=== PATIENT | male | born 1940 | race Caucasian/White ===

== ENCOUNTER 2017-06-25 11:16 | Inpatient (IN) | payer MEDICARE, OTHER ==
[~2017-06-25] VITALS: Ht 179.1 cm; Wt 84.1 kg
--- NOTE | ~2017-06-25 | EC ---
PATIENT:SYLWIA LAUGHLIN DATE OF SERVICE: 06/25/17 SEX: M MEDICAL RECORD: [id number] DATE OF : 38 LOCATION:D.[facility] AGE OF PATIENT: 77 ADMISSION DATE: 06/25/17 REFERRING PHYSICIAN: INTERPRETING PHYSICIAN: MIRANDA TELLEZ MD ECHOCARDIOGRAM REPORT ECHO CHARGES 4 ECHO COMPLETE CLINICAL DIAGNOSIS: CVA ECHOCARDIOGRAPHIC MEASUREMENTS (adult normal given) AC root (d.<3.7cm) 3.3 cm LV Septum d (<1.2 cm> 1.4 cm Valve Excursion 1.8 cm LV Septum (systole) 2.0 cm Left Atria (s.<4.0cm> 3.5 cm LVPW d(<1.2cm) 1.3 cm RV (d.<2.3cm) 2.7 cm LVPW (sytole) 1.7 cm LV diastole(<5.6CM) 5.2 cm MV E-F(>70mm/sec) cm LV systole 3.0 cm LVOT Diameter 1.7 cm MV exc.(>10mm) cm Est.ejection fraction (50-75%) % Pericardial Effusion N DOPPLER: LVIT cm/sec A 88.0 cm/sec E 69.0 cm/sec LA cm/sec RVSP 33.2 mmHg LVOT 122 cm/sec AOP1/2T m/s Asc. Ao 181 cm/sec RVOT 66.0 cm/sec RA cm/sec PA 95.0 cm/sec AV Gradient Peak 13.1 mmHg AV Mean 5.7 mmHg AV Area 1.4 cm MV Gradient Peak 4.4 mmHg MV Mean 1.3 mmHg MV Area cm COMMENTS: Food Manager: Cary HUGHESOE Physician'S Aide: 4 Dr. Tellez TAPE# PACS DATE OF SERVICE: 06/26/2017 Transthoracic Echocardiogram FINDINGS: 1. The left ventricle has normal size and normal function with mild left ventricular hypertrophy that is concentric in nature. 2. The mitral valve is shown to have mild mitral regurgitation; is grossly normal, although well not visualized. 3. Aortic valve difficult to visualize but by Doppler evaluation appears to be ECHOCARDIOGRAM REPORT [id number] SYLWIA LAUGHLIN normal function and a grossly normal structure. 4. The right ventricle has normal size and normal function. 5. The right atrium has normal size and normal function. 6. The tricuspid valve has moderate tricuspid regurgitation and the pulmonary pressures are at the upper limits of normal to mildly elevated between 25 and 35 mmHg. 7. The pulmonic valve is not well visualized, but otherwise normal. 8. The pericardium shows no evidence of pericardial effusion. 9. The IVC is seen to be normal and collapses, indicating likely normal CVP. TRANSINT:[id number] Voice Confirmation ID: [id number] DOCUMENT ID: [id number] MIRANDA TELLEZ MD CC: [id number] DICTATION DATE: 06/27/172024 MANAGER CONTINUOUS IMPROVEMENT: 06/27/172323 DIS IN 06/26/17 [facility] [address] [id number]
[~2017-06-25 11:16] MED LIST: BAYER CHEWABLE81 MG PO; CENTRUM COMPLE1 EACH PO; COZAAR25 MG PO; GARLIC1 CAP PO; OMEGA 3 FISH OI1 CAP PO; PLAVIX75 MG PO; PROSCAR5 MG PO
[2017-06-25 12:10] LABS: BASOPHILS 0.4 % (0-2); EOSINOPHILS 2.7 % (0-7); HEMATOCRIT 44.4 % (42.0-54.0); HEMOGLOBIN 15.8 g/dL (13.5-17.5); IMMATURE GRANULOCYTES 0.2 % (0-5); LYMPHOCYTES 28.3 % (15-50); MCH 32.2 pg (26.0-34.0); MCHC 35.6 g/dL (31.0-37.0); MCV 90.4 fL (80.0-100.0); MEAN PLATELET VOLUME 9.7 fL (7.4-10.4); MONOCYTES 11.2 % (2-11); NEUTROPHILS 57.2 % (40-80); PLATELET COUNT 160 10x3/uL (130-400); RBC 4.91 10x6/uL (4.20-6.10); RDW 12.8 % (11.5-14.5); WBC 4.5 10x3/uL (4.8-10.8)
[2017-06-25 12:27] LABS: ALKALINE PHOSPHATASE 75 U/L (46-116); ALT (SGPT) 22 U/L (10-68); BILIRUBIN - TOTAL 0.54 mg/dL (0.2-1.3); CALC OSMOLALITY 279 mosm/kg (275-300); CALCIUM 8.5 mg/dL (8.5-10.1); CARBON DIOXIDE 26.7 mmol/L (21.0-32.0); CHLORIDE - SERUM 105 mmol/L (98-107); GLUCOSE 102 mg/dL (74-106); POTASSIUM - SERUM 4.4 mmol/L (3.5-5.1); PROTEIN - SERUM 6.6 g/dL (6.4-8.2); SODIUM 140 mmol/L (136-145); UREA NITROGEN 15 mg/dL (7-18); eGFR NON AFRICAN AMERICAN 77 mL/min (90-120)
[2017-06-25 12:35] LABS: PRO BNP 82 pg/mL (0-450)
[2017-06-25 12:43] LABS: TROPONIN-I < 0.017 ng/mL (0.000-0.060)
[2017-06-25] MEDS ORDERED: ASPIRIN EC325 M1 PO (16:11)
[2017-06-25 16:53] VITALS: BP 113/67
[2017-06-25 18:20] VITALS: BP 113/67; Ht 179.1 cm; Wt 84.1 kg
[2017-06-25 20:00] VITALS: BP 137/72
[2017-06-26] VITALS: BP 138/63
[2017-06-26 04:00] VITALS: BP 119/63
[2017-06-26 05:42] LABS: BASOPHILS 0.5 % (0-2); EOSINOPHILS 4.8 % (0-7); HEMATOCRIT 42.4 % (42.0-54.0); HEMOGLOBIN 14.7 g/dL (13.5-17.5); IMMATURE GRANULOCYTES 0.2 % (0-5); MCH 31.6 pg (26.0-34.0); MCHC 34.7 g/dL (31.0-37.0); MCV 91.2 fL (80.0-100.0); MEAN PLATELET VOLUME 10.2 fL (7.4-10.4); MONOCYTES 10.9 % (2-11); NEUTROPHILS 44.6 % (40-80); PLATELET COUNT 153 10x3/uL (130-400); RBC 4.65 10x6/uL (4.20-6.10); RDW 12.9 % (11.5-14.5); WBC 4.4 10x3/uL (4.8-10.8)
[2017-06-26 05:55] LABS: ALBUMIN 3.2 g/dL (3.4-5.0); ALKALINE PHOSPHATASE 59 U/L (46-116); ALT (SGPT) 19 U/L (10-68); BILIRUBIN - TOTAL 0.46 mg/dL (0.2-1.3); CALC OSMOLALITY 279 mosm/kg (275-300); CALCIUM 7.9 mg/dL (8.5-10.1); CARBON DIOXIDE 28.3 mmol/L (21.0-32.0); CHLORIDE - SERUM 107 mmol/L (98-107); CHOL - HDL RATIO 4.6 ratio (2.3-4.9); CHOLESTEROL, TOTAL 206 mg/dL (0-200); GLUCOSE 98 mg/dL (74-106); HDL CHOLESTEROL 45 mg/dL (32-96); LDL CHOLESTEROL 138 mg/dL (0-100); LDL-HDL RATIO 3.1 ratio (1.5-3.5); POTASSIUM - SERUM 4.3 mmol/L (3.5-5.1); SODIUM 140 mmol/L (136-145); TRIGLYCERIDE 115 mg/dL (30-200); UREA NITROGEN 14 mg/dL (7-18); eGFR NON AFRICAN AMERICAN 77 mL/min (90-120)
[2017-06-26] MEDS ORDERED: PLAVIX75 MG PO (08:06)
[2017-06-26 09:00] VITALS: BP 98/74
== END 2017-06-26 10:45 | disposition home or self-care (01) | DRG 66 ==
LOC: D.ER 11:16 → D.MS 14:06
PROVIDERS: Emergency Medicine; ADMIT Family Medicine
DX: I63.9 Cerebral infarction, unspecified (principal); R20.0 Anesthesia of skin; I10 Essential (primary) hypertension; E11.65 Type 2 diabetes mellitus with hyperglycemia; Z95.5 Presence of coronary angioplasty implant and graft

== ENCOUNTER 2018-06-09 01:35 | Inpatient (IN) | payer MEDICARE, OTHER ==
[2018-06-09] VITALS (9 sets, daily range): BP systolic 122–162; BP diastolic 62–83; BMI 25.1
[~2018-06-09] VITALS: Ht 179.1 cm; Wt 87.5 kg
--- NOTE | ~2018-06-09 | TEE ---
PATIENT:SYLWIA LAUGHLIN MEDICAL RECORD: [id number] LOCATION:[place] [address] AGE OF PATIENT: 78 ADMISSION DATE: 06/10/18 SEX: M REFERRING PHYSICIAN: INTERPRETING PHYSICIAN: DELMAR GREENBERG MD TRANSESOPHAGEAL ECHOCARDIOGRAM Date: 06/13/18 ISA CHARGE Y INDICATIONS: CABG PREMEDICATIONS: PATIENT'S RESPONSE PROCEDURE DOPPLER MEASUREMENTS: LVIT LA PA RA LVOT RVOT Asc. Ao AV Gradient Peak AV Mean AV Area MV Gradient Peak MV Mean MV Area INTERPRETATION: LVd: 3.6 cm LVs: 1.8 cm Doppler: 2-D: COLOR FLOW DOPPLER NORMAL SALINE STUDY: MISCELLANOUS: DIAGNOSIS: PLAN: Welding Inspector:Norma Mcintosh Palletiser Operator: Cary TORRE COMMENTS: DATE OF SERVICE: 06/13/2018 PROCEDURE: Transesophageal echo evaluation of valvular structures during bypass surgery. FINDINGS: 1. Left ventricular chamber size is within normal limits. Left ventricular systolic function is normal. Overall ejection fraction is estimated at 55%. 2. Left atrium, right atrium, and right ventricle chamber sizes are upper TRANSESOPHAGEAL ECHOCARDIOGRAM REPORT [id number] SYLWIA LAUGHLIN limits of normal. 3. Valvular structures have normal structure and motion. 4. Doppler interrogation reveals mild aortic insufficiency and mild mitral regurgitation. No other valvular insufficiency or stenosis. 5. No evidence of pericardial effusion or left ventricular thrombus. TRANSINT:[id number] Voice Confirmation ID: [id number] DOCUMENT ID: [id number] at 1806 CC: [id number] DICTATION DATE: 06/13/18 1502 UX DEVELOPER DESIGNER: 06/13/18 1925 ADM IN [place] [id number] [place] [address]
--- NOTE | ~2018-06-09 | OP ---
PATIENT NAME: SYLWIA LAUGHLIN MEDICAL RECORD: [id number] :38 LOCATION:D.[facility] D.CV04 ADMISSION DATE:06/10/18 SURGEON: RYAN DENNEY MD DATE OF OPERATION: 06/13/2018 SURGEON: Ryan Denney MD ANESTHESIA: General endotracheal, Dr. Carrero. OPERATION PERFORMED: 1. Coronary artery bypass. 2. Left internal thoracic, left anterior descending. 3. Reverse saphenous vein graft to the distal right coronary artery. 4. Reverse saphenous vein graft to the ramus, sequential obtuse marginal 2 coronary artery. PREOPERATIVE DIAGNOSES: Intermediate coronary syndrome, unstable angina. POSTOPERATIVE DIAGNOSES: Intermediate coronary syndrome, unstable angina. INDICATION FOR OPERATION: Unstable angina. FINDINGS OF THE OPERATION: The left internal thoracic and reverse saphenous vein graft were excellent conduits for grafting. The target vessels were also of good quality and caliber. ESTIMATED BLOOD LOSS: Cell Saver was used. DESCRIPTION OF PROCEDURE: After informed consent, adequate preoperative medication evaluation, the patient was brought to the operating room, placed on the table in the supine position. After induction of general endotracheal anesthesia, application of appropriate monitoring devices, chest, neck, abdomen, and both legs were prepped and draped in a sterile field, utilizing Betadine scrub, alcohol, and Betadine solution. Betadine-impregnated drape was also used. Saphenous vein was harvested from right thigh and prepared for reverse saphenous vein grafting. Leg was closed over drains utilizing 3-0 Vicryl and skin alphonso. A median sternotomy incision was used and dissection carried down the fascia. Hemostasis maintained with electrocautery. Sternum was divided, the innominate vein was identified and protected. Left internal thoracic was taken down and prepared for grafting. The patient was given a calculated dose of heparin, cannulated in a standard fashion utilizing 1 aortic, one two-stage cannula in the atrium and inferior vena cava. The patient placed on cardiopulmonary bypass, cooled to 32 degrees centigrade. A cross clamp was placed just proximal to the aortic cannula. The patient was given cardioplegic solution through the aortic root. The patient was given a cold induction and cold maintenance. The patient was given cold intermittent cardioplegic solution throughout the procedure through the grafts, through the root or a combination of both. The first vessel to be grafted was the second obtuse marginal was grafted end-to-side utilizing a running 7-0 Prolene suture. The graft was then measured to the ramus and a djxo-on-yfcw anastomosis fashioned utilizing running 7-0 Prolene suture. Graft was measured back to the aorta and a proximal anastomosis fashioned utilizing running 6-0 Prolene suture. Next, the distal right was grafted end-to-side utilizing running 7-0 Prolene suture. Graft was measured back to the aorta, proximal anastomosis fashioned utilizing running 6-0 Prolene suture. Next, left internal thoracic was brought through a hole in OPERATIVE REPORT [id number] TRUMAN,SYLWIA Barth pericardium, sutured to the left anterior descending end-to-side utilizing a running 8-0 Prolene suture. Pedicle was attached to the epicardium with 6-0 Prolene suture. All maneuvers to remove trapped air were performed. The patient was given warm cardioplegic reperfusion and controlled reperfusion. The patient rewarmed to 37 degrees centigrade. Two atrial and 2 ventricular pacing wires were placed on the heart, brought out through the epigastric area. The patient was weaned from cardiopulmonary bypass. After being stable off bypass, he was given calculated dose of protamine to reverse the heparin. Hemostasis was achieved. A #40 right angle and #36 chest tubes were brought in through the epigastric area and placed in mediastinum. Chest was again irrigated. Instrument count and sponge count were correct times 2. Chest was closed in layers utilizing #7 wire on the sternum, #2 Vicryl on linea alba and pectoralis fascia. Subcutaneous tissue was approximated with 3-0 Vicryl and skin approximated with 3-0 subcuticular Vicryl. Sterile dressings were applied. The patient tolerated the procedure well and was transferred to cardiovascular recovery in stable condition. TRANSINT:[id number] Voice Confirmation ID: [id number] DOCUMENT ID: [id number] RYAN DENNEY MD at 1234 CC: [id number] DICTATION DATE: 06/13/18 142 INSPECTOR REPAIRER: 06/13/18 1439 DIS IN 06/21/18 [facility] [address] [id number]
--- NOTE | ~2018-06-09 | HEMODYNAMI ---
PATIENT:SYLWIA LAUGHLIN MEDICAL RECORD: [id number] : 38 LOCATION:[facility] [address] [facility]# [id number] ADMISSION DATE: 06/09/18 Generatedon:06/09/201810:58 Patient name: SYLWIA LAUGHLIN Patient #: [id number] SSN: : 1940 Date of study: 06/09/2018 Page: Of Hemodynamic Procedure Report Patient Data Patient Demographics Procedure consent was obtained First Name: SYLWIA Gender: Male Last Name: TRUMAN : 1940 Middle Initial: H Age: 78 year(s) Patient #: [id number] Race: Additional ID: [id number] Contact details [address]: [address] [place] [address] DRIVE State: [place] City: [place] Zip code: [address] Past Medical History History of disease Date Diagnosis Comments CAD Peripheral vascular disease Allergies Allergen Reaction Date Comments Reported ANA inhibitors 10/21/2015 Statins 10/21/2015 Admission Admission Data Admission Date: 06/09/2018 Admission Time: 2:49 Room #: D.2127 Lab Results Lab Result Date: 06/09/2018 Lab Result Time: 0:00 Biochemistry Name Units Result Min Max BUN mg/dl 15 --(--*-)-- 7 18 Creatinine mg/dl 1.1 --(--*-)-- 0.6 1.3 CBC Name Units Result Min Max Hemoglobin g/dl 15.4 --(-*--)-- 13.5 17.5 Procedure Procedure Types Cath Procedure Diagnostic Procedure LHC LH w/Coronaries Sedation Charges Moderate Sedation up to 15 minutes Procedure Description Procedure Date Procedure Date: 06/09/2018 Procedure Start Time: 10:26 Procedure End Time: 10:56 Procedure Staff Name Function Chester Mcintosh MD Performing Physician Adair Rosa RT Monitor Pat Camacho RT Scrub Tito Tim RN Nurse Albert Amanda RN Nurse Procedure Data Cath Procedure Fluoroscopy Diagnostic fluoroscopy Total fluoroscopy Time: 3.2 time: 3.2 min min Diagnostic fluoroscopy Total fluoroscopy dose: 789 dose: 789 mGy mGy Contrast Material Contrast Material Type Amount (ml) Isovue 300 85 Entry Location Entry Primary Successful Side Size Upsize Upsize Entry Closure Ye ccessful Closure Location (Fr) 1 (Fr) 2 (Fr) Remarks Device Remarks Radial Right 6 Fr Mechanical artery Short Compression Estimated blood loss: 5 ml Diagnostic catheters Device Type Used For End Catheter Placement DIAGNOSTIC Tim 110cm Procedure 5Fr catheter ([id number]) DIAGNOSTIC [place] 110cm 5 Procedure Fr catheter ([id number]) Procedure Complications No complications Procedure Medications Medication Administration Route Dosage 0.9% NaCl I.V. 100 ml/hr Oxygen etCO2 Nasal cannula 2 l/min Heparin Flush Bag added to field 2 bags (1000units/500ml NS) Lidocaine 2% added to field 20 Radial Cocktail added to field 1 syringe (Verapomil 2mg/Nitro 400mcg/Heparin 1500units) Radial Cocktail I.A. 1 syringe (Verapomil 2mg/Nitro 400mcg/Heparin 1500units) Versed I.V. 2 mg Fentanyl I.V. 100 mcg Hemodynamics Rest HGB: 15.4 (g/dl) Heart Rate: 62 (bpm) Pressure Samples Time Site Value (mmHg) Purpose Heart Use Rate(bpm) 10:29 LV 104/0,8 Snapshot 71 10:30 AO 86/49(60) Pullback 76 10:30 LV 105/19,26 Pullback 76 Gradients Valve Time Site 1 Site 2 Mean SEP/DFP Peak To Heart Use (mmHg) (sec/min) Peak Rate (mmHg) (bpm) Aortic 10:30 LV AO 11 21 19 76 105/19,26 86/49(60) Calculations Valve P-P Mean Valve Index Valve Source Name Gradient Area Flow (cm2) Aortic 19 11 19 11 Snapshots Pre Cath Intra NCS Post Cath Vital Signs Time Heart Resp SPO2 etCO2 NIBP (mmHg) Rhythm Pain Sedation Rate (ipm) (%) (mmHg) Status Level (bpm) 10:14:28 64 15 99 0 166/90(128) NSR 0 (11) 10(A) , No pain 10:19:45 62 20 100 33.9 149/79(128) NSR 0 (11) 10(A) , No pain 10:24:26 64 20 100 35.4 140/79(115) NSR 0 (11) 10(A) , No pain 10:29:04 75 10 97 24.1 95/51(65) NSR 0 (11) 10(A) , No pain 10:33:30 76 18 94 0 107/83(95) NSR 0 (11) 10(A) , No pain 10:38:38 76 14 93 27.1 144/71(101) NSR 0 (11) 9(A) , No pain 10:43:16 73 19 94 38.5 133/70(96) NSR 0 (11) 9(A) , No pain 10:47:53 72 14 94 35.4 128/69(91) NSR 0 (11) 9(A) , No pain 10:52:31 71 11 94 37.7 124/72(91) NSR 0 (11) 9(A) , No pain Medications Time Medication Route Dose Verified Delivered Reason Notes Effectiveness by by 10:23:46 0.9% NaCl I.V. 100 Tito Francis Per ml/hr Glenroy Tim RN physician RN 10:23:57 Oxygen etCO2 2 l/min Tito Francis Per Nasal Glenroy Tim RN physician cannula RN 10:24:16 Heparin Flush added 2 bags Tito Francis used for Bag to Glenroy Tim RN procedure (1000units/500ml field RN NS) 10:24:28 Lidocaine 2% added 20ml Tito Francis for local to vial Glenroy Tim RN anesthetic field RN 10:24:39 Radial Cocktail added 1 Tito Tito used for (Verapomil to syringe Glenroy Tim RN procedure 2mg/Nitro field RN 400mcg/Heparin 1500units) 10:25:39 Versed I.V. 2 mg Albert Albert for sedation Treasure Amanda RN RN 10:25:48 Fentanyl I.V. 100 mcg Albert Albert for sedation Treasure Amanda RN RN 10:28:10 Radial Cocktail I.A. 1 Tito Chester for (Verapomil syringe Glenroy Mcintosh MD vasodilation 2mg/Nitro RN 400mcg/Heparin 1500units) Procedure Log Time Note 10:00:42 Tito Tim RN sent for patient. Start room use. 10:09:54 Time tracking: Regular hours (M-F 7:00 - 5:00) 10:10:00 Plan of Care:Hemodynamics will remain stable., Cardiac rhythm will remain stable., Comfort level will be maintained., Respiratory function will remain adequate., Patient/ family verbilizes understanding of procedure., Procedure tolerated without complication., Recovers from procedure without complications.. 10:10:16 Patient received from Med II to CCL 1 Alert and oriented. Tansferred to table in Supine position. 10:10:17 Warm blankets applied, and mariah hugger turned on for patient comfort. 10:10:19 Signed procedure consent form obtained from patient. 10:10:30 ECG and BP/O2 sat monitors applied to patient. 10:10:30 Vital chart was started 10:10:31 Baseline sample Acquired. 10:14:57 Baseline sample Acquired. 10:15:02 Rhythm: sinus rhythm 10:15:03 Full Disclosure recording started 10:15:07 H&P Date Dictated: 06/09/2018 New H&P dictated by physician.. 10:15:09 Pre-procedure instructions explained to patient. 10:15:09 Pre-op teaching completed and patient verbalized understanding. 10:15:12 Family in patients room. 10:15:15 Patient NPO since Midnight. 10:17:25 Is the patient allergic to Iodine/contrast media? No. 10:17:27 Was the patient premedicated? No 10:17:27 Is patient on blood thinner?Yes 10:17:30 ACC The patient was administered the following blood thiners within the last 24 hours: ACCPlavix 10:17:33 Patient diabetic? No. 10:17:35 Previous problem with sedation/anesthesia? No ? 10:17:41 Snore? No 10:17:42 Sleep apnea? No 10:17:43 Deviated septum? No 10:17:44 Opens mouth fully? Yes 10:17:44 Sticks out tongue? Yes 10:17:46 Airway obstruction? No ? 10:17:51 Dentures? Yes in tight 10:17:58 Pre procedure: right dorsailis pedis pulse 2+ Normal; easily identifiable; not easily obliterated 10:18:00 Patient pain scale 0/10 ?. 10:18:07 IV patent on arrival in left forearm with 0.9% NaCl at O. 10:18:09 Lab results completed and on chart. 10:18:13 Right Radial & Right Groin area was prepped with chlora-prep and draped in sterile fashion 10:18:14 Physician arrived 10:18:15 --------ALL STOP TIME OUT------ 10:18:15 Final Timeout: patient, procedure, and site verified with staff and physician. All members of the team are in agreement. 10:18:16 Right Radial & Right Groin site verified by team. 10:18:20 Physical assessment completed. ASA score P 2 - A patient with mild systemic disease as per Chester Mcintosh MD. 10:18:23 Sedation plan: IV Moderate Sedation Medication:Versed, Fentanyl 10:19:45 Lab Result : BUN 15 mg/dl 10:19:45 Lab Result : Creatinine 1.1 mg/dl 10:19:45 Lab Result : Hemoglobin 15.4 g/dl 10:21:51 Use device set Radial Dx or PCI 10:21:53 ACIST Syringe (05951) opened to sterile field. 10:21:54 ACIST Hand Control (58629) opened to sterile field. 10:21:55 ACIST Manifold (29408) opened to sterile field. 10:21:56 Bag Decanter (2002S) opened to sterile field. 10:21:58 Tegaderm 4 x 4 (1626W) opened to sterile field. 10:21:58 Medline Cath Pack ([id number]) opened to sterile field. 10:21:59 DIAGNOSTIC WIRE .035 260cm J wire (964060) opened to sterile field. 10:22:00 MBrace Wrist Support ([id number]) opened to sterile field. 10:22:01 SHEATH 6Fr Prelude Radial ([id number]) opened to sterile field. 10:23:46 0.9% NaCl 100 ml/hr I.V. was administered by Tito Tim RN; Per physician; 10:23:50 Zero performed for pressure channel P1 10:23:57 Oxygen 2 l/min etCO2 Nasal cannula was administered by Tito Tim RN; Per physician; 10:24:16 Heparin Flush Bag (1000units/500ml NS) 2 bags added to field was administered by Tito Tim RN; used for procedure; 10:24:28 Lidocaine 2% 20ml vial added to field was administered by Tito Tim RN; for local anesthetic; 10::39 Radial Cocktail (Verapomil 2mg/Nitro 400mcg/Heparin 1500units) 1 syringe added to field was administered by Tito Tim RN; used for procedure; ::39 Versed 2 mg I.V. was administered by Albert Amanda RN; for sedation; 10:25:48 Fentanyl 100 mcg I.V. was administered by Albert Amanda RN; for sedation; 10:25:53 Procedure started. 10:26:36 Local anesthetic to right radial artery with Lidocaine 2% by Chester Mcintosh MD.INITIAL ACCESS ONLY 10:27:13 A 6 Fr Short sheath was inserted into the Right Radial artery 10:28:10 Radial Cocktail (Verapomil 2mg/Nitro 400mcg/Heparin 1500units) 1 syringe I.A. was administered by Chester Mcintosh MD; for vasodilation; 10:28:11 A DIAGNOSTIC Tim 110cm 5Fr catheter (137013) was advanced over the wire and used for Procedure. 10:29:04 LV gram done using WADE 10:29:07 Injector settings: Ml/sec: 7, Volume: 15, 10:29:24 LV hemodynamics recorded. 10:29:44 EF : 55 % 10:31:33 RCA angiography performed. 10:32:23 Catheter exchanged over wire. 10:32:32 A DIAGNOSTIC [place] 110cm 5 Fr catheter (183890) was advanced over the wire and used for Procedure. 10:41:52 LCA angiography performed. 10:44:56 Catheter removed. 10:45:16 TR BAND Standard ([id number]) opened to sterile field. 10:45:52 Procedure ended.(Physican Out) 10:46:57 Fluoroscopy time 03.20 minutes. 10:47:02 Fluoroscopy dose: 789 mGy 10:47:02 Flurop Dose total: 789 10:47:06 Contrast amount:Isovue 300 85ml. 10:47:13 Post-procedure physical assessment completed. ASA score P 2 - A patient with mild systemic disease as per Chester Mcintosh MD. 10:48:00 Post procedure rhythm: sinus rhythm 10:48:01 Estimated blood loss: 5 ml 10:48:10 Post procedure instruction explained to patient.Patient verbalizes understanding. 10:48:10 Patient needs reinforcement of post procedure teaching. 10:48:28 Procedure type changed to Cath procedure, Diagnostic procedure, LHC, LHC w/Coronaries, Sedation Charges, Moderate Sedation up to 15 minutes 10:48:56 Procedure and supply charges have been captured, reviewed, submitted and are correct. 10:48:59 Procedure Complication : No complications 10:55:52 Sheath removed intact; hemostasis achieved with Mechanical Compression to the Right Radial artery. 10:55:58 TR band inflated with 10cc of air. 10:56:00 Vital chart was stopped 10:56:00 See physician's report for complete and final results. 10:56:02 Report given to PCU. 10:56:04 Patient transfered to PCU with Bed. 10:56:06 Procedure ended. 10:56:06 Full Disclosure recording stopped 10:56:09 End room use (Document Last) Device Usage Item Name Manufacture Quantity Catalog Number Hospital Part Current M inimal Lot# / Charge Number Stock Stock Serial# Code ACIST Syringe Acist 1 15794 135903 152406 302014 2 0 (60289) [employer] ACIST Hand Acist 1 85194 278421 596670 458182 5 Control (70316) [employer] ACIST Manifold Acist 1 37221 867575 455549 274901 5 (37388) [employer] Bag Decanter Microtek 1 2002S 179930 30553 450955 5 (2002S) Medical Inc. Tegaderm 4 x 4 3M 1 1626W 457023 153995 742306 5 (1626W) Medline Cath Cardinal 1 [id number] 816983 60513 650901 5 [facility] ([id number]) DIAGNOSTIC WIRE [facility] [place] 1 188728 360200 968438 238658 3 0 .035 260cm J wire (091328) MBrace Wrist Advanced 1 140-0250-00 314908 57868 651876 5 Support Vascular ([id number]) Dynamics SHEATH 6Fr Merit 1 [id number] 041642 456568 484275 5 Prelude Radial Medical ([id number]) DIAGNOSTIC Terumo 1 40-5023 465659 610559 633003 5 Tim 110cm 5Fr catheter (938461) DIAGNOSTIC Terumo 1 40-5013 980238 924534 593738 5 [place] 110cm 5 Fr catheter (029225) TR BAND Terumo 1 [id number] 225719 691162 042992 4 0 Standard ([id number]) Signature Audit [place] Stage Time Signature Unsigned Intra-Procedure 06/09/2018 Pat Camacho 10:58:02 AM RT(R) Signatures Monitor : Adair Rosa RT Signature : Date : Time : [facility] [address] [place] [address]
[~2018-06-09 01:35] MED LIST changes: +ASPIRIN EC325 M1 PO
[2018-06-09 01:57] LABS: BASOPHILS 0.4 % (0-2); EOSINOPHILS 4.7 % (0-7); HEMATOCRIT 43.7 % (42.0-54.0); HEMOGLOBIN 15.4 g/dL (13.5-17.5); IMMATURE GRANULOCYTES 0.4 % (0-5); LYMPHOCYTES 30.9 % (15-50); MCH 32.4 pg (26.0-34.0); MCHC 35.2 g/dL (31.0-37.0); MEAN PLATELET VOLUME 9.9 fL (7.4-10.4); NEUTROPHILS 51.6 % (40-80); PLATELET COUNT 152 10x3/uL (130-400); RBC 4.75 10x6/uL (4.20-6.10); RDW 12.7 % (11.5-14.5); WBC 4.5 10x3/uL (4.8-10.8)
[2018-06-09 02:02] LABS: INR 0.93 (0.85-1.17); PROTIME 12.1 SECONDS (11.6-15.0)
[2018-06-09 02:04] LABS: D-DIMER-QUANTITATIVE 0.34 ug/mLFEU (0.20-0.54)
[2018-06-09 02:07] LABS: ALBUMIN 3.5 g/dL (3.4-5.0); ALKALINE PHOSPHATASE 66 U/L (46-116); ALT (SGPT) 26 U/L (10-68); BILIRUBIN - TOTAL 0.27 mg/dL (0.2-1.3); CALC OSMOLALITY 280 mosm/kg (275-300); CALCIUM 7.9 mg/dL (8.5-10.1); CARBON DIOXIDE 27.4 mmol/L (21.0-32.0); CHLORIDE - SERUM 105 mmol/L (98-107); CREATININE - SERUM 1.1 mg/dL (0.6-1.3); GLUCOSE 118 mg/dL (74-106); POTASSIUM - SERUM 3.9 mmol/L (3.5-5.1); PROTEIN - SERUM 6.4 g/dL (6.4-8.2); SODIUM 140 mmol/L (136-145); UREA NITROGEN 15 mg/dL (7-18); eGFR NON AFRICAN AMERICAN 68 mL/min (90-120)
[2018-06-09 02:22] LABS: CKMB 2.8 U/L (0.0-3.6); CREATINE KINASE 184 UL (21-232); PRO BNP 460 pg/mL (0-450)
[2018-06-09 02:24] LABS: TROPONIN-I 0.578 ng/mL (0.000-0.060)
[2018-06-09 08:03] LABS: BASOPHILS 0.4 % (0-2); EOSINOPHILS 3.2 % (0-7); HEMATOCRIT 46.4 % (42.0-54.0); HEMOGLOBIN 16.2 g/dL (13.5-17.5); IMMATURE GRANULOCYTES 0.4 % (0-5); LYMPHOCYTES 28.8 % (15-50); MCH 32.4 pg (26.0-34.0); MCHC 34.9 g/dL (31.0-37.0); MCV 92.8 fL (80.0-100.0); MEAN PLATELET VOLUME 9.8 fL (7.4-10.4); MONOCYTES 10.3 % (2-11); NEUTROPHILS 56.9 % (40-80); PLATELET COUNT 146 10x3/uL (130-400); RDW 12.8 % (11.5-14.5); WBC 4.7 10x3/uL (4.8-10.8)
[2018-06-09 08:49] LABS: ANION GAP 7.5 mmol/L (8-16); CALCIUM 7.9 mg/dL (8.5-10.1); CARBON DIOXIDE 32.5 mmol/L (21.0-32.0); CREATININE - SERUM 1.1 mg/dL (0.6-1.3)
[2018-06-09 08:52] LABS: TROPONIN-I 0.924 ng/mL (0.000-0.060)
[2018-06-09 12:18] LABS: PLT FUNCT.(P2Y12) PLAVIX 117 PRU (194-418)
[2018-06-09 16:29] LABS: PLT FUNCT.(P2Y12) PLAVIX 99 PRU (194-418)
[2018-06-10] VITALS: BP 130/68
[2018-06-10 04:00] VITALS: BP 125/64
[2018-06-10 05:35] LABS: BASOPHILS 0.6 % (0-2); EOSINOPHILS 2.9 % (0-7); HEMATOCRIT 42.8 % (42.0-54.0); HEMOGLOBIN 14.7 g/dL (13.5-17.5); LYMPHOCYTES 25.8 % (15-50); MCH 31.9 pg (26.0-34.0); MCHC 34.3 g/dL (31.0-37.0); MCV 92.8 fL (80.0-100.0); MEAN PLATELET VOLUME 10.3 fL (7.4-10.4); NEUTROPHILS 59.7 % (40-80); PLATELET COUNT 148 10x3/uL (130-400); RBC 4.61 10x6/uL (4.20-6.10); RDW 12.6 % (11.5-14.5); WBC 4.8 10x3/uL (4.8-10.8)
[2018-06-10 06:09] LABS: CALCIUM 7.6 mg/dL (8.5-10.1); CARBON DIOXIDE 28.8 mmol/L (21.0-32.0); CREATININE - SERUM 1.1 mg/dL (0.6-1.3); POTASSIUM - SERUM 3.8 mmol/L (3.5-5.1)
[2018-06-10 08:11] VITALS: BP 141/56
[2018-06-10 11:31] VITALS: BP 133/61
[2018-06-10 15:29] VITALS: BP 140/64
[2018-06-10 20:00] VITALS: BP 155/84
[2018-06-10 21:54] LABS: APPEARANCE CLEAR (CLEAR); BILIRUBIN NEGATIVE (NEGATIVE); COLOR YELLOW (YELLOW); GLUCOSE NEGATIVE (NEGATIVE); KETONE NEGATIVE (NEGATIVE); NITRITE NEGATIVE (NEGATIVE); PROTEIN NEGATIVE (NEGATIVE); UROBILINOGEN NORMAL (NORMAL)
[2018-06-11] VITALS (7 sets, daily range): BP systolic 122–136; BP diastolic 66–71
[2018-06-11 05:43] LABS: PLT FUNCT.(P2Y12) PLAVIX 146 PRU (194-418)
[2018-06-12 01:10] VITALS: BP 136/84
[2018-06-12 05:47] VITALS: BP 137/68
[2018-06-12 06:18] LABS: BASOPHILS 0.4 % (0-2); HEMATOCRIT 43.6 % (42.0-54.0); HEMOGLOBIN 15.2 g/dL (13.5-17.5); LYMPHOCYTES 31.4 % (15-50); MCH 32.1 pg (26.0-34.0); MCHC 34.9 g/dL (31.0-37.0); MONOCYTES 9.7 % (2-11); NEUTROPHILS 55.5 % (40-80); PLATELET COUNT 141 10x3/uL (130-400); RBC 4.74 10x6/uL (4.20-6.10); RDW 12.5 % (11.5-14.5); WBC 4.7 10x3/uL (4.8-10.8)
[2018-06-12 07:19] LABS: ALBUMIN 3.2 g/dL (3.4-5.0); ALKALINE PHOSPHATASE 66 U/L (46-116); ALT (SGPT) 22 U/L (10-68); BILIRUBIN - TOTAL 0.56 mg/dL (0.2-1.3); CALC OSMOLALITY 276 mosm/kg (275-300); CALCIUM 7.9 mg/dL (8.5-10.1); CARBON DIOXIDE 28.6 mmol/L (21.0-32.0); CHLORIDE - SERUM 105 mmol/L (98-107); CHOLESTEROL, TOTAL 216 mg/dL (0-200); CREATININE - SERUM 0.9 mg/dL (0.6-1.3); GLUCOSE 91 mg/dL (74-106); PHOSPHOROUS 2.9 mg/dL (2.5-4.9); POTASSIUM - SERUM 3.8 mmol/L (3.5-5.1); SODIUM 139 mmol/L (136-145); T4 THYROXIN - FREE 1.05 ng/dL (0.76-1.46); THYROID STIMULATING HORMONE 3.27 uIU/mL (0.36-3.74); UREA NITROGEN 9 mg/dL (7-18); URIC ACID 6.5 mg/dL (2.6-7.2); eGFR NON AFRICAN AMERICAN 86 mL/min (90-120)
[2018-06-12 07:23] LABS: INR 0.98 (0.85-1.17); PROTIME 12.6 SECONDS (11.6-15.0)
[2018-06-12 07:24] LABS: APTT 35.5 SECONDS (22.8-39.4)
[2018-06-12 08:51] VITALS: BP 147/77
[2018-06-12 11:03] LABS: PLT FUNCT.(P2Y12) PLAVIX 136 PRU (194-418)
[2018-06-12 12:20] VITALS: BP 136/68
[2018-06-12 16:55] VITALS: BP 136/64
[2018-06-12 20:20] VITALS: BP 142/64
[2018-06-13] VITALS (40 sets, daily range): BP systolic 92–138; BP diastolic 51–69
[2018-06-13 08:31] LABS: PLT FUNCT.(P2Y12) PLAVIX 183 PRU (194-418)
[2018-06-13 13:46] LABS: MCH 31.7 pg (26.0-34.0); MCV 90.6 fL (80.0-100.0); MEAN PLATELET VOLUME 9.7 fL (7.4-10.4); RDW 12.2 % (11.5-14.5)
[2018-06-13 14:03] LABS: CALC OSMOLALITY 288 mosm/kg (275-300); CARBON DIOXIDE 28.2 mmol/L (21.0-32.0); CHLORIDE - SERUM 107 mmol/L (98-107); CREATININE - SERUM 0.8 mg/dL (0.6-1.3); GLUCOSE 193 mg/dL (74-106); SODIUM 143 mmol/L (136-145); UREA NITROGEN 10 mg/dL (7-18); eGFR NON AFRICAN AMERICAN > 90 mL/min (90-120)
[2018-06-13 14:05] LABS: CALCIUM 6.7 mg/dL (8.5-10.1)
[2018-06-13 14:08] LABS: APTT 35.7 SECONDS (22.8-39.4); HEMOGLOBIN 10.5 g/dL (13.5-17.5); INR 1.35 (0.85-1.17); PROTIME 16.3 SECONDS (11.6-15.0); RBC 3.31 10x6/uL (4.20-6.10); WBC 9.6 10x3/uL (4.8-10.8)
[2018-06-14] VITALS (85 sets, daily range): BP systolic 100–131; BP diastolic 49–66; Ht 179.1 cm; Wt 87.5 kg
[2018-06-14 06:09] LABS: HEMOGLOBIN 10.2 g/dL (13.5-17.5); MCHC 35.2 g/dL (31.0-37.0); MCV 90.9 fL (80.0-100.0); MEAN PLATELET VOLUME 9.7 fL (7.4-10.4); RBC 3.19 10x6/uL (4.20-6.10); RDW 12.8 % (11.5-14.5); WBC 11.7 10x3/uL (4.8-10.8)
[2018-06-14 06:52] LABS: ALBUMIN 2.7 g/dL (3.4-5.0); ANION GAP 8.2 mmol/L (8-16); BILIRUBIN - TOTAL 0.46 mg/dL (0.2-1.3); POTASSIUM - SERUM 4.2 mmol/L (3.5-5.1); PROTEIN - SERUM 5.2 g/dL (6.4-8.2)
[2018-06-14 06:57] LABS: CREATININE - SERUM 1.2 mg/dL (0.6-1.3)
[2018-06-14 11:19] LABS: HEPATITIS C ANTIBODY 0.1 (0.0-0.9)
[2018-06-15] VITALS (30 sets, daily range): BP systolic 103–140; BP diastolic 48–110
[2018-06-15 06:13] LABS: HEMATOCRIT 27.2 % (42.0-54.0); HEMOGLOBIN 9.4 g/dL (13.5-17.5); MCH 31.5 pg (26.0-34.0); MCHC 34.6 g/dL (31.0-37.0); MCV 91.3 fL (80.0-100.0); MEAN PLATELET VOLUME 10.2 fL (7.4-10.4); RBC 2.98 10x6/uL (4.20-6.10); RDW 13.2 % (11.5-14.5); WBC 13.3 10x3/uL (4.8-10.8)
[2018-06-15 06:26] LABS: ALBUMIN 2.7 g/dL (3.4-5.0); ANION GAP 11.5 mmol/L (8-16); BILIRUBIN - TOTAL 0.45 mg/dL (0.2-1.3); CARBON DIOXIDE 24.7 mmol/L (21.0-32.0); POTASSIUM - SERUM 4.2 mmol/L (3.5-5.1); PROTEIN - SERUM 5.5 g/dL (6.4-8.2)
[2018-06-15 06:28] LABS: CALCIUM 6.9 mg/dL (8.5-10.1)
[2018-06-16] VITALS (24 sets, daily range): BP systolic 101–130; BP diastolic 44–66
[2018-06-16 06:08] LABS: HEMATOCRIT 23.9 % (42.0-54.0); HEMOGLOBIN 8.4 g/dL (13.5-17.5); MCH 32.2 pg (26.0-34.0); MCHC 35.1 g/dL (31.0-37.0); MCV 91.6 fL (80.0-100.0); MEAN PLATELET VOLUME 10.1 fL (7.4-10.4); RBC 2.61 10x6/uL (4.20-6.10); RDW 13.1 % (11.5-14.5)
[2018-06-16 06:11] LABS: WBC 8.8 10x3/uL (4.8-10.8)
[2018-06-16 06:22] LABS: ALBUMIN 2.5 g/dL (3.4-5.0); ANION GAP 11.1 mmol/L (8-16); BILIRUBIN - TOTAL 0.51 mg/dL (0.2-1.3); CARBON DIOXIDE 27.6 mmol/L (21.0-32.0); CREATININE - SERUM 1.6 mg/dL (0.6-1.3); POTASSIUM - SERUM 3.7 mmol/L (3.5-5.1); PROTEIN - SERUM 5.4 g/dL (6.4-8.2)
[2018-06-17] VITALS (23 sets, daily range): BP systolic 98–123; BP diastolic 43–67
[2018-06-17 06:13] LABS: ALBUMIN 2.3 g/dL (3.4-5.0); BILIRUBIN - TOTAL 0.51 mg/dL (0.2-1.3); CALCIUM 7.2 mg/dL (8.5-10.1); CARBON DIOXIDE 29.4 mmol/L (21.0-32.0); CREATININE - SERUM 1.2 mg/dL (0.6-1.3); PROTEIN - SERUM 5.4 g/dL (6.4-8.2)
[2018-06-17 06:18] LABS: POTASSIUM - SERUM 4.4 mmol/L (3.5-5.1)
[2018-06-17 07:04] LABS: HEMATOCRIT 23.1 % (42.0-54.0); HEMOGLOBIN 7.7 g/dL (13.5-17.5); MCH 30.9 pg (26.0-34.0); MCHC 33.3 g/dL (31.0-37.0); MCV 92.8 fL (80.0-100.0); MEAN PLATELET VOLUME 10.4 fL (7.4-10.4); RBC 2.49 10x6/uL (4.20-6.10)
[2018-06-17 07:05] LABS: WBC 5.1 10x3/uL (4.8-10.8)
[2018-06-18] VITALS (23 sets, daily range): BP systolic 81–123; BP diastolic 49–65
[2018-06-18 06:03] LABS: HEMATOCRIT 23.3 % (42.0-54.0); HEMOGLOBIN 7.8 g/dL (13.5-17.5); MCH 31.2 pg (26.0-34.0); MCHC 33.5 g/dL (31.0-37.0); MCV 93.2 fL (80.0-100.0); MEAN PLATELET VOLUME 9.6 fL (7.4-10.4); RBC 2.5 10x6/uL (4.20-6.10); WBC 5.9 10x3/uL (4.8-10.8)
[2018-06-18 06:37] LABS: ALBUMIN 2.3 g/dL (3.4-5.0); ANION GAP 8.9 mmol/L (8-16); BILIRUBIN - TOTAL 0.58 mg/dL (0.2-1.3); CALCIUM 7.1 mg/dL (8.5-10.1); CARBON DIOXIDE 28.5 mmol/L (21.0-32.0); CREATININE - SERUM 1.1 mg/dL (0.6-1.3); POTASSIUM - SERUM 4.4 mmol/L (3.5-5.1); PROTEIN - SERUM 5.5 g/dL (6.4-8.2)
[2018-06-19] VITALS (17 sets, daily range): BP systolic 86–119; BP diastolic 42–70
[2018-06-19 05:29] LABS: HEMATOCRIT 26.7 % (42.0-54.0); HEMOGLOBIN 8.9 g/dL (13.5-17.5); MCH 30.4 pg (26.0-34.0); MCHC 33.3 g/dL (31.0-37.0); MCV 91.1 fL (80.0-100.0); MEAN PLATELET VOLUME 9.5 fL (7.4-10.4); RBC 2.93 10x6/uL (4.20-6.10)
[2018-06-19 05:48] LABS: ANION GAP 8.7 mmol/L (8-16); CALCIUM 7.2 mg/dL (8.5-10.1); CARBON DIOXIDE 30.2 mmol/L (21.0-32.0); CREATININE - SERUM 1.2 mg/dL (0.6-1.3); POTASSIUM - SERUM 3.9 mmol/L (3.5-5.1)
[2018-06-20] VITALS (24 sets, daily range): BP systolic 94–130; BP diastolic 44–90
[2018-06-21] VITALS (11 sets, daily range): BP systolic 102–121; BP diastolic 40–69
[2018-06-21] MEDS ORDERED: ASPIRIN81 MG PO (11:57)
[2018-06-21] MEDS ORDERED: CORDARONE200 MG PO (11:57)
[2018-06-21] MEDS ORDERED: LOPRESSOR25 MG PO (12:04)
[2018-06-21] MEDS ORDERED: FLOMAX0.4 MG PO (12:04)
[2018-06-21] MEDS ORDERED: HYDROCODON-ACE1 EAC7 PO (12:05)
== END 2018-06-21 14:47 | disposition home or self-care (01) | DRG 234 ==
LOC: D.ER 01:35 → OBSVTIME 02:49 → D.M2 02:49 → D.CVICU 06-10 14:48 → D.M2 06-10 14:48 → D.CVICU 06-13 11:25
PROVIDERS: Family Medicine; Internal Medicine Cardiovascular Disease
PROC: B2111ZZ Fluoroscopy of Multiple Coronary Arteries using Low Osmolar Contrast (ICD-10-PCS; 2018-06-09)
PROC: B2151ZZ Fluoroscopy of Left Heart using Low Osmolar Contrast (ICD-10-PCS; 2018-06-09)
PROC: 4A023N7 Measurement of Cardiac Sampling and Pressure, Left Heart, Percutaneous Approach (ICD-10-PCS; 2018-06-09)
PROC: 021109W Bypass Coronary Artery, Two Arteries from Aorta with Autologous Venous Tissue, Open Approach (ICD-10-PCS; 2018-06-13)
PROC: 06BP0ZZ Excision of Right Saphenous Vein, Open Approach (ICD-10-PCS; 2018-06-13)
PROC: 5A1221Z Performance of Cardiac Output, Continuous (ICD-10-PCS; 2018-06-13)
PROC: B24BZZ4 Ultrasonography of Heart with Aorta, Transesophageal (ICD-10-PCS; 2018-06-13)
PROC: 02100Z9 Bypass Coronary Artery, One Artery from Left Internal Mammary, Open Approach (ICD-10-PCS; principal; 2018-06-13 07:30)
DX: I25.110 Atherosclerotic heart disease of native coronary artery with unstable angina pectoris (principal); D62 Acute posthemorrhagic anemia; I10 Essential (primary) hypertension; K21.9 Gastro-esophageal reflux disease without esophagitis; E11.9 Type 2 diabetes mellitus without complications; E78.5 Hyperlipidemia, unspecified; Z86.73 Personal history of transient ischemic attack (TIA), and cerebral infarction without residual deficits; R79.89 Other specified abnormal findings of blood chemistry; R33.9 Retention of urine, unspecified

== ENCOUNTER → 2018-07-07 13:30 | Outpatient (CLI) | payer MEDICARE, OTHER ==
[2018-06-14 15:03] VITALS: BMI 25.4
[~2018-07-07 13:30] MED LIST changes: +ASPIRIN81 MG PO; +CORDARONE200 MG PO; +FLOMAX0.4 MG PO; +HYDROCODON-ACE1 EAC7 PO; +LOPRESSOR25 MG PO
[2018-07-07 14:43] LABS: ALBUMIN 3.3 g/dL (3.4-5.0); ANION GAP 11.6 mmol/L (8-16); BILIRUBIN - TOTAL 0.42 mg/dL (0.2-1.3); CALCIUM 8.4 mg/dL (8.5-10.1); CARBON DIOXIDE 26.9 mmol/L (21.0-32.0); CREATININE - SERUM 1.2 mg/dL (0.6-1.3); POTASSIUM - SERUM 4.5 mmol/L (3.5-5.1); PROTEIN - SERUM 6.7 g/dL (6.4-8.2)
[2018-07-07 14:51] LABS: HEMATOCRIT 37.5 % (42.0-54.0); MCH 29.7 pg (26.0-34.0); MCV 92.8 fL (80.0-100.0); MEAN PLATELET VOLUME 9.4 fL (7.4-10.4); RBC 4.04 10x6/uL (4.20-6.10); WBC 5.3 10x3/uL (4.8-10.8)
== END | disposition home or self-care (01) ==
LOC: D.RAD 08:30
PROVIDERS: Internal Medicine Cardiovascular Disease
DX: J91.8 Pleural effusion in other conditions classified elsewhere (principal); D64.9 Anemia, unspecified

== ENCOUNTER 2018-07-16 08:50 | Emergency (ER) | payer MEDICARE, OTHER ==
[~2018-07-16] VITALS: Ht 179.1 cm; Wt 79.1 kg
[2018-07-16 08:54] VITALS: Ht 179.1 cm; Wt 79.1 kg
[2018-07-16 09:10] LABS: BASOPHILS 0.4 % (0-2); EOSINOPHILS 5.2 % (0-7); HEMATOCRIT 41.2 % (42.0-54.0); HEMOGLOBIN 13.5 g/dL (13.5-17.5); IMMATURE GRANULOCYTES 0.4 % (0-5); LYMPHOCYTES 24.8 % (15-50); MCH 29.9 pg (26.0-34.0); MCHC 32.8 g/dL (31.0-37.0); MCV 91.4 fL (80.0-100.0); MEAN PLATELET VOLUME 9.3 fL (7.4-10.4); MONOCYTES 8.6 % (2-11); NEUTROPHILS 60.6 % (40-80); PLATELET COUNT 206 10x3/uL (130-400); RBC 4.51 10x6/uL (4.20-6.10); RDW 14.6 % (11.5-14.5); WBC 5.6 10x3/uL (4.8-10.8)
[2018-07-16 09:24] LABS: ALBUMIN 3.5 g/dL (3.4-5.0); ALKALINE PHOSPHATASE 98 U/L (46-116); ALT (SGPT) 19 U/L (10-68); BILIRUBIN - TOTAL 0.55 mg/dL (0.2-1.3); CALC OSMOLALITY 278 mosm/kg (275-300); CALCIUM 8.6 mg/dL (8.5-10.1); CARBON DIOXIDE 27.3 mmol/L (21.0-32.0); CHLORIDE - SERUM 104 mmol/L (98-107); CREATININE - SERUM 1.2 mg/dL (0.6-1.3); GLUCOSE 132 mg/dL (74-106); POTASSIUM - SERUM 4.1 mmol/L (3.5-5.1); PROTEIN - SERUM 6.8 g/dL (6.4-8.2); SODIUM 138 mmol/L (136-145); UREA NITROGEN 16 mg/dL (7-18); eGFR NON AFRICAN AMERICAN 62 mL/min (90-120)
[2018-07-16 09:47] LABS: CKMB 1.2 U/L (0.0-3.6); CREATINE KINASE 53 UL (21-232); TROPONIN-I < 0.017 ng/mL (0.000-0.060)
[2018-07-16] MEDS ORDERED: NORCO 7.5/325 T1 TA1 PO (10:25)
[2018-07-16 10:39] VITALS: BP 134/74
== END 2018-07-16 10:40 | disposition home or self-care (01) ==
LOC: D.ER 08:50
PROVIDERS: Emergency Medicine
DX: R07.9 Chest pain, unspecified (principal); I25.810 Atherosclerosis of coronary artery bypass graft(s) without angina pectoris; S20.212A Contusion of left front wall of thorax, initial encounter; X58.XXXA Exposure to other specified factors, initial encounter; Y93.89 Activity, other specified; Y92.89 Other specified places as the place of occurrence of the external cause; Z86.73 Personal history of transient ischemic attack (TIA), and cerebral infarction without residual deficits; I10 Essential (primary) hypertension; N42.9 Disorder of prostate, unspecified

== ENCOUNTER 2018-09-29 15:51 | Emergency (ER) | payer MEDICARE, OTHER ==
[~2018-09-29] VITALS: Ht 179.1 cm; Wt 81.8 kg
[~2018-09-29 15:51] MED LIST changes: +NORCO 7.5/325 T1 TA1 PO
[2018-09-29 16:05] VITALS: Ht 179.1 cm; Wt 81.8 kg
[2018-09-29 16:38] LABS: BASOPHILS 0.6 % (0-2); EOSINOPHILS 2.7 % (0-7); HEMATOCRIT 44.5 % (42.0-54.0); IMMATURE GRANULOCYTES 0.2 % (0-5); LYMPHOCYTES 28.1 % (15-50); MCH 29.1 pg (26.0-34.0); MCHC 33.7 g/dL (31.0-37.0); MCV 86.4 fL (80.0-100.0); MEAN PLATELET VOLUME 9.2 fL (7.4-10.4); MONOCYTES 11.1 % (2-11); NEUTROPHILS 57.3 % (40-80); PLATELET COUNT 151 10x3/uL (130-400); RBC 5.15 10x6/uL (4.20-6.10); RDW 14.5 % (11.5-14.5); WBC 5.1 10x3/uL (4.8-10.8)
[2018-09-29 16:53] LABS: ALBUMIN 3.3 g/dL (3.4-5.0); ALKALINE PHOSPHATASE 73 U/L (46-116); ALT (SGPT) 16 U/L (10-68); BILIRUBIN - TOTAL 0.24 mg/dL (0.2-1.3); CALC OSMOLALITY 282 mosm/kg (275-300); CALCIUM 8.3 mg/dL (8.5-10.1); CARBON DIOXIDE 25.7 mmol/L (21.0-32.0); CHLORIDE - SERUM 105 mmol/L (98-107); CREATININE - SERUM 1.1 mg/dL (0.6-1.3); GLUCOSE 112 mg/dL (74-106); POTASSIUM - SERUM 4.1 mmol/L (3.5-5.1); PROTEIN - SERUM 6.6 g/dL (6.4-8.2); SODIUM 141 mmol/L (136-145); UREA NITROGEN 16 mg/dL (7-18); eGFR NON AFRICAN AMERICAN 68 mL/min (90-120)
[2018-09-29 17:00] LABS: TROPONIN-I < 0.017 ng/mL (0.000-0.060)
[2018-09-29 18:07] VITALS: BP 154/72
== END 2018-09-29 18:12 | disposition home or self-care (01) ==
LOC: D.ER 15:51
PROVIDERS: Family Medicine
DX: R07.89 Other chest pain (principal); R42 Dizziness and giddiness; Z86.73 Personal history of transient ischemic attack (TIA), and cerebral infarction without residual deficits; I10 Essential (primary) hypertension

== ENCOUNTER → 2019-04-03 12:41 | Outpatient (CLI) | payer MEDICARE, OTHER ==
[2018-09-29 16:05] VITALS: BMI 25.5
== END | disposition home or self-care (01) ==
LOC: D.HCCARDIO 12:41
PROVIDERS: ATTEND Internal Medicine Cardiovascular Disease
DX: I25.10 Atherosclerotic heart disease of native coronary artery without angina pectoris (principal)